=== PATIENT | female | born 1995 ===

== ENCOUNTER 2018-07-03 18:22 | Emergency (ER) | payer OTHER ==
[2018-07-03 18:52] VITALS: RESP 18; O2SAT 96
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
[2018-07-03 22:06] VITALS: BP 120/68; PULSE 89; TEMP 98
--- NOTE | 2018-07-04 10:19 | RAD ---
PROCEDURE: Radiographs of the pelvis and bilateral hips HISTORY: injury COMPARISON: None. FINDINGS: BONES: Bone alignment and mineralization are normal. There is no acute displaced fracture or bone destruction. JOINTS: The joint spaces are preserved. SOFT TISSUES: Normal. OTHER FINDINGS: An IUD overlies the pelvis. IMPRESSION: No acute displaced fracture or dislocation.
== END 2018-07-03 21:30 | disposition home or self-care (01) ==
LOC: ED 18:22
DX: T14.8XXA Other injury of unspecified body region, initial encounter (principal); V09.9XXA Pedestrian injured in unspecified transport accident, initial encounter